=== PATIENT | male | born 1970 | race Caucasian/White ===

== ENCOUNTER 2020-01-05 09:42 | Day surgery (SDC) | payer BC ==
[~2020-01-05] VITALS: Ht 188 cm; Wt 111.2 kg
[2020-01-05 10:17] VITALS: BP 138/104; PULSE 78; TEMP 97.8
[2020-01-05 11:50] VITALS: BP 105/86; PULSE 67; TEMP 97.6
--- NOTE | 2020-01-05 11:50 | NUR ---
Patient brought back to [facility] via cart. Alert and oriented, ambulated to chair without difficulty. Placed on monitors, vital signs stable. Patient states he would like water and muffin. Report recieved from Nathalie PEREZ, all questions answered. at bedside. Warm blanket provided, call mckeon within reach.
[2020-01-05 12:05] VITALS: BP 123/81; PULSE 70
--- NOTE | 2020-01-05 12:05 | NUR ---
Patient tolerating food and drink without difficulty. States he is feeling well. Will continue to monitor.
[2020-01-05 12:20] VITALS: BP 108/82; PULSE 69
--- NOTE | 2020-01-05 12:20 | NUR ---
Patient states he is feeling ready to go home at this time. Vital signs stable. IV removed, intact. Discharge instructions reviewed with patient and . All questions answered. Patient to get dressed at this time.
--- NOTE | 2020-01-05 12:30 | NUR ---
Patient brought down to lobby via wheelchair. To be driven home by .
== END 2020-01-05 12:30 | disposition home or self-care (01) ==
LOC: SDCO 09:42
DX: Z12.11 Encounter for screening for malignant neoplasm of colon (principal); D12.3 Benign neoplasm of transverse colon; E11.9 Type 2 diabetes mellitus without complications; E66.09 Other obesity due to excess calories
CPT/HCPCS: J2704; J3010; J7120